=== PATIENT | female | born 1970 | race Caucasian/White ===

== ENCOUNTER 2024-01-15 02:09 | Emergency (ER) | payer OTHER, SELFPAY ==
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
[2024-01-15 02:13] VITALS: BP 121/78; PULSE 96; RESP 18; TEMP 35.7; O2SAT 96; BMI 26.9
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
[2024-01-15] MEDS: Ibuprofen 600 MG TABLET PO (03:36)
[2024-01-15 03:50] VITALS: BP 129/68; PULSE 89; RESP 16; TEMP 36.6; O2SAT 98
== END 2024-01-15 03:51 | disposition home or self-care (01) ==
PROVIDERS: Emergency Provider Internal Medicine; PCP Internal Medicine
DX: M25.521 Pain in right elbow (principal); S90.511A Abrasion, right ankle, initial encounter; Y04.2XXA Assault by strike against or bumped into by another person, initial encounter; Y93.89 Activity, other specified; Y92.511 Restaurant or cafe as the place of occurrence of the external cause; Y99.9 Unspecified external cause status
CPT/HCPCS: 73070; 99283; 99284

== ENCOUNTER 2024-03-02 12:35 | Outpatient (AMB) | payer OTHER, SELFPAY ==
[2024-03-02 12:53] VITALS: BP 118/66; PULSE 75; TEMP 36.7; O2SAT 98; BMI 26.8
--- NOTE | 2024-03-02 12:53 | MHC.OFFWIV ---
Intake Vital Signs 03/02/24 12:53 Height 5 ft 4 in Weight 156 lb BMI 26.8 BP 118/66 Blood Pressure Location Lt brachial Position Sitting Pulse 75 Pulse Source Pulse Oximeter Temp 98.1 F Temp Source Oral Pulse Oximetry (%) 98 Oxygen Delivery Method Room Air Intake Visit Reasons: EP-lt rib pain Intake Note: pt c/o LT rib pain. Started Wednesday. Slipped and fell while cleaning bathtub Patient Tobacco Use Status: Current everyday Tobacco user Allergies amoxicillin [AMOXICILLIN] Allergy (Unknown, Verified 03/02/24 12:58) RASH clavulanic acid [From AUGMENTIN] Allergy (Unknown, Verified 03/02/24 12:58) RASH Do you need a note to return to daycare/school/sports/work: No HPI HPI Comments History of Present Illness Details Patient is a 54-year-old female complaining of left-sided rib pain and pain with deep inspiration. She states she was cleaning the bathtub 3 days ago and her hand slipped and she caught the left underside of her ribs onto the edge of the bathtub. She states she has not been able to sleep because the pain is so bad and she is concerned there might be a fracture. She denies any actual shortness of breath but states it does hurt when she takes a deep breath. She has been taking ibuprofen without much relief in pain. [facility] Social History Patient Tobacco Use Status: Current everyday Tobacco user Review of Systems Const All systems reviewed & are unremarkable except as noted in HPI and below Physical Exam Vital Signs: Last Vital Signs Temp 98.1 F 03/02/24 12:53 Pulse 75 03/02/24 12:53 BP 118/66 03/02/24 12:53 Pulse Ox 98 03/02/24 12:53 Oxygen Delivery Method Room Air 03/02/24 12:53 BMI result Body Mass Index 26.8 Const General: cooperative, healthy appearing, comfortable and no acute distress Orientation/consciousness: patient oriented x3 Limitations: no limitations HEENT Head: Yes normal to inspection Chest Other: No ecchymosis Chest palpation & inspection: localized rib tenderness with anteroposterior compression left anterior-axillary line involving the 6th rib, involving the 7th rib and involving the 8th rib Resp Effort & Inspection: normal respiratory effort and able to speak in complete sentences Neuro General: patient oriented x3 Assessment & Plan Assessment & Plan (1) Rib tenderness: Code(s): R07.81 - Pleurodynia Plan: We will get chest x-ray with rib x-ray to ensure no fracture or atelectasis. Recommended using Salonpas patches or simliar, ice/heat as well as a leave or 600 mg of ibuprofen every 6 hours. Also recommended she use an incentive spirometer several times daily; gave her an incentive spirometer. Plan See above Orders: Orders XR ribs LT min 3V w CXR1V Today R07.81 - Pleurodynia Coding Level of Care Code New Pt Level 4 (11146) Diagnoses Rib tenderness R07.81
== END 2024-03-02 13:13 | disposition home or self-care (01) ==
PROVIDERS: PCP Internal Medicine; Visit Provider Physician Assistant
DX: R07.81 Pleurodynia (principal)
CPT/HCPCS: 99204

== ENCOUNTER 2024-03-02 13:07 | Outpatient (REF) | payer OTHER, SELFPAY ==
--- NOTE | ~2024-03-02 | XR_ITS ---
EXAMINATION: XR RIBS, LEFT CLINICAL INFORMATION: Pleurodynia. COMPARISON: None available. TECHNIQUE: 3 views of the left ribs were obtained. FINDINGS: Lungs are clear. No consolidation, pneumothorax, or pleural effusion. The cardiomediastinal silhouette and pulmonary vasculature are normal. Osseous structures are unremarkable. Ribs are intact. No fractures are identified. XR/XR ribs LT min 3V w CXR1V IMPRESSION: 1. No acute cardiopulmonary findings. 2. No displaced rib fractures. Electronically signed by: Marva Malave MD 03/02/2024 02:06 PM EDT
== END 2024-03-02 13:08 | disposition home or self-care (01) ==
LOC: HO.HMGCX 13:07
PROVIDERS: Visit Provider Physician Assistant
DX: R07.81 Pleurodynia (principal)
CPT/HCPCS: 71101

== ENCOUNTER 2025-03-09 10:52 | Outpatient (REF) | payer OTHER, SELFPAY ==
--- NOTE | ~2025-03-09 | XR_ITS ---
EXAMINATION: XR HAND, LEFT CLINICAL INFORMATION: S69.90XA - Unspecified injury of unspecified wrist, hand and finger(s), ... COMPARISON: None available. TECHNIQUE: PA, lateral, and oblique views of the left hand. FINDINGS: There is transverse lucency across the proximal metaphysis of the fifth proximal phalanx. No other abnormalities are seen. XR/XR hand LT min 3V IMPRESSION: Acute fracture of the proximal metaphysis, fifth proximal phalanx. Electronically signed by: Sal Hawk MD 03/09/2025 11:59 AM EDT
--- OUTSIDE RECORDS SUMMARY | 2025-03-09 14:10 | XMS_ITS ---
Author Name [facility] Organization Unknown Care Team Organization Name Specialty Phone Email Start Date End Da te [facility] Viky Camacho Primary Care 11/02/2022 024 [facility] Keeley Rodriguez Primary Care 09/02/2022
--- OUTSIDE RECORDS SUMMARY | 2025-03-09 14:10 | XMS_ITS | Clinical Summary ---
Author Organization [facility] [address] [place] [address] Address [address] [place] [address] Phone Care Team Providers Care [employer] Wire[employer] Name Role Phone Viky Camacho MD Primary Care Provider [phone] Allergies Active Allergy Reactions Criticality Noted Date Comments Amoxicillin Hives 10/27/2018 Medications diclofenac (VOLTAREN) 1 % topical gel Apply 4 g topically 2 (two) times a day if needed (Hi pain). 12/03/19 24 Active blood-glucose meter kit Use to test once daily 08/12/19 24 Active blood sugar diagnostic (FreeStyle Lite Strips) test strip Use to test once daily 08/12/19 24 Active FREESTYLE LANCETS MISC Use to test once daily 08/12/19 24 Active levothyroxine (SYNTHROID, LEVOTHROID) 100 mcg tablet Take 1 tablet (100 mcg total) by mouth 1 (one) time each day before breakfast. 90 each 1 10/19/19 25 Active Trulicity 0.75 mg/0.5 mL pen injector injectionIndications:Ty pe 2 diabetes mellitus with hypercholesterolemia (CMS/HCC V24, CMS/HCC V28) INJECT 0.5 ML (0.75 MG TOTAL) UNDER THE SKIN ONE TIME PER WEEK 2 mL 2 01/04/20 25 Active citalopram (CeleXA) 10 mg tablet Take 1 tablet (10 mg total) by mouth 1 (one) time each day. 90 each 01/19/20 25 Active empagliflozin (Jardiance) 10 mg tablet Take 1 tablet (10 mg total) by mouth 1 (one) time each day. 90 tablet 1 02/23/20 Active empagliflozin (Jardiance) 10 mg tablet Take 1 tablet (10 mg total) by mouth 1 (one) time each day. 90 tablet 01/19/20 25 2024 Amy mcdowell(Reo rder) Active Problems Problem Noted Date Diagnosed Date Fatty liver 04/29/2018 Hypertriglyceridemia 04/26/2018 Transaminitis 04/26/2018 Type 2 diabetes mellitus wit h hypercholesterolemia ([facility] V24, [facility] V28) 04/21/2018 Acquired hypothyroidism 04/18/2018 Obesity (BMI 30-39.9) 04/18/2018 Encounters Date Type Department Care Team Description 02/09/2025 3:30 PM EDT Office Visit Adult [address] [phone] Viky Camacho MD Type 2 diabetes mellitus with hypercholesterolemia ([facility] V24, [facility] V28) (Primary Dx); Acquired hypothyroidism; Depression, unspecified depression type; Vitamin D deficiency 01/18/2025 1:00 PM EDT Office Visit Orthopedics [address] [phone] Shiv Andrews PA Derangement of left knee (Primary Dx) 01/17/2025 1:00 PM EDT Treatment Outpatient Rehabilitation [address] [phone] Danyell Jaramillo, LEAD [employer] ENGINEER Acute pain of left knee (Primary Dx); Bilateral low back pain without sciatica, unspecified chronicity 01/12/2025 11:30 AM EDT Treatment Outpatient Rehabilitation [address] [phone] Agustin Santillan, LEAD [employer]LECT[employer] ENGINEER Acute pain of left knee (Primary Dx) 01/05/2025 11:30 AM EDT Treatment Outpatient Rehabilitation [address] [phone] Agustin Santillan, LEAD [employer]LECT[employer] CONTR[employer]S ENGINEER Acute pain of left knee (Primary Dx) 01/05/2025 Telephone Adult Medicine [facility] - [address] [phone] Viky Camacho MD 12/21/2024 11:30 AM EDT Treatment Outpatient Rehabilitation [address] [phone] Wilmer Butt, PT Acute pain of left knee (Primary Dx) 12/15/2024 11:30 AM EDT Treatment Outpatient Rehabilitation - [address] [phone] Agustin Santillan, LEAD [employer]LECT[employer] ENGINEER Acute pain of left knee (Primary Dx) 12/07/2024 1:15 PM EDT Office Visit Orthopedics - [address] [phone] Shiv Andrews, PA Acute pain of left knee (Primary Dx) 12/07/2024 11:30 AM EDT Treatment Outpatient Rehabilitation - [address] [phone] Wilmer Butt, PT Acute pain of left knee (Primary Dx) from Last 3 Months Immunizations Name Administration Dates Next Due Influenza Quadravalent, MDCK , 0.5ml, preservative free (Flucelvax) 6mo and older 03/31/2023,05/15/2022,04/18/2018 Influenza trivalent, 0.5mL, preservative free (Fluarix; FluLaval; Fluzone) ages 6mo and older (Afluria) 3 years and older 03/16/2024,06/16/2021,04/13/2019,2016 Tdap Tetanus diptheria acell ular pertussis (Boostrix; Adacel) 7yo and older 10/10/2024 Surgical History Surgery Date Site/Laterality Comments OTHER SURGICAL HISTORY 2013 PROCEDURE: DISKECTOMY LUMBAR SINGLE SP ANKLE SURGERY 2016 Right PROCEDURE: HISTORICAL ANKLE SURGERY; COMMENT: after fracture, with hardware placement Medical History Medical History Date Comments Acquired hypothyroidism 04/18/2018 DX:Acqui red hypothyroidism Tobacco use 04/18/2018 DX:Tobacco use Obesity (BMI 30-39.9) 04/18/2018 DX:Obesity (BMI 30-39.9) Transaminitis 04/26/2018 DX:Transaminitis ; COMMENT: NAFLD Alcohol consuption of more t vernon two drinks per day 10/27/2018 DX:Alcohol consuption of mor e than two drinks per day Family History Medical History Relation Name Comments Diabetes Brother htn Heart attack Father Lung cancer Mother Diabetes Paternal Grandmother htn Relation Name Status Comments Brother Father Maternal Grandfather Maternal Grandmother Mother Paternal Grandfather Paternal Grandmother Social History Tobacco Use Types Packs/Day Years Used Date Smoking Tobacco: Every Day Cigarettes 0.5 31.9 Started: 04/18/1993 Smokeless Tobacco: Never Tobacco Cessation:Ready to Q uit: Not Asked; Counseling Given: Not Answered Alcohol Use Standard Drinks/Week Comments Yes 0 (1 standard drink = 0.6 oz pur e alcohol) social Housing Instability Answer Date Recorde d Are you worried that in the next 2 months you may not have stable housing? No 10/10/2024 Food Access & Nutrition Answer Date Rec orded Do you have access to a vari ety of food including fruits and vegetables? Yes 10/10/2024 Access to Healthcare Answer Date Record ed Within the last 3 months, ho w many times did you visit the emergency department for your medical care? 0 10/10/2024 Health Literacy Answer Date Recorded How often do you need to hav e someone help you when you read instructions, pamphlets, or other written material from your doctor or pharmacy? Patient declined 10/10/2024 Caregiver: How often do you need to have someone help you when you read instructions, pamphlets, or other written material from your doctor or pharmacy? Not on file 025 Financial Risk Answer Date Recorded How hard is it for you to pa y for the very basics like food, housing, medical care, and air conditioning / heating? Very hard 10/10/2024 Transportation Answer Date Recorded Has the lack of transportati on kept you from meetings, work, or from getting things needed for daily living? No Has the lack of transportati on kept you from medical appointments or from getting medications? No 10/10/2024 Social Isolation Answer Date Recorded How often do you feel lonely or isolated from those around you? Sometimes 10/10/2024 Food Risk Answer Date Recorded Within the past 12 months we worried whether our food would run out before we got money to buy more. Not on file 025 Within the past 12 months th e food we bought just didn't last and we didn't have money to get more. Sometimes true 10/10/2024 Education Answer Date Recorded Do you think completing more education or training, like finishing a GED, going to college, or learning a trade, would be helpful for you? No 10/10/2024 Employment and Income Answer Date Recor ded During the last four weeks, have you been actively looking for work? No 10/10/2024 Living Situation Answer Date Recorded What is your living situation? 0 10/10/2024 Comments No Sex and Gender Information Value Date Recorded Sex Assigned at Not on file Legal Sex Female 3:23 PM EST Gender Identity Not on file Sexual Orientation Not on file Obstetrics History Last Filed Vital Signs Vital Sign Reading Time Taken Comments Blood Pressure 106/72 02/09/2025 3:50 PM EDT Pulse 78 02/09/2025 3:50 PM EDT Temperature 36.4 C (97.5 F) 02/09/2025 3:50 PM EDT Respiratory Rate 14 02/09/2025 3:50 PM EDT Oxygen Saturation 98% 02/09/2025 3:50 PM EDT Inhaled Oxygen Concentration - - Weight 70.8 kg (156 lb) 02/09/2025 3:50 PM EDT Height 160 cm (5' 3 ) 02/09/2025 3:50 PM EDT Body Mass Index 27.63 02/09/2025 3:50 PM EDT Plan of Treatment Upcoming Encounters Date Type Department Care Team (Late st Contact Info) Description 03/19/2025 10:00 AM EDT Consult Orthopedic Surgery - [place] [address] [place] [address] Juan Zuniga MD [address] [place] [phone] 10/11/2025 3:00 PM EDT Office Visit Adult [address] [phone] Viky Camacho MD [address] [place] [phone] Health Maintenance Due Date Last Done Comments Diabetes: Annual Retina Eye Exam 02/09/1978 Hepatitis B Vaccines (1 of 3 - 19+ 3-dose series) 02/09/1987 Pneumococcal Vaccine: 50+ Years (1 of 2 - PCV) 02/09/1987 Cervical Cancer Screening: Pap Smear 02/09/1989 Zoster Vaccines (1 of 2) 02/09/2018 Breast Cancer Screening 04/20/2020 04/20/2018 Colorectal Cancer Screening: Colonoscopy 06/06/2022 HIV Screening 06/06/2022 Diabetes: Annual Foot Exam 12/02/2024 12/03/2023 Influenza Vaccine (#1) 2025 , 03/31/2023, 05/15/2022, Additional history exists Diabetes: Blood Sugar Control Test (HGBA1C) 04/13/2025 10/12/2024, 03/27/2024, 03/27/2024, Additional history exists Social Influencers of Health Screening 10/10/2025 10/10/2024 Diabetes: Annual Urine Albumin-Creatinine Ratio (uACR) 10/12/2025 10/12/2024, 03/27/2024 Diabetes: Annual GFR (Glomerular Filtration Rate) 10/12/2025 10/12/2024, 03/27/2024, 03/27/2024, Additional history exists Cholesterol Screening (Lipid Panel) 10/12/2029 10/12/2024, 03/27/2024, 03/27/2024 DTaP,Tdap,and Td Vaccines (2 - Td or Tdap) 10/10/2034 10/10/2024 Hepatitis C Screening Completed 10/27/2018 COVID-19 Vaccine Discontinued 06/16/2021, , 09/27/2020 Depression Screening Completed 10/10/2024 HIB Vaccines Aged Out No longer eligi ble based on patient's age to complete this topic HPV Vaccines Aged Out No longer eligi ble based on patient's age to complete this topic Hepatitis A Vaccines Aged Out No long er eligible based on patient's age to complete this topic IPV Vaccines Aged Out No longer eligi ble based on patient's age to complete this topic MMR Vaccines Aged Out No longer eligi ble based on patient's age to complete this topic Meningococcal ACWY Vaccine Aged Out N o longer eligible based on patient's age to complete this topic Meningococcal B Vaccine Aged Out No l onger eligible based on patient's age to complete this topic RSV Immunization Patients Under 20 months Aged Out No longer eligible based on patient's age to complete this topic Varicella Vaccines Aged Out No longer eligible based on patient's age to complete this topic Goals Goal Patient Goal Type Associated Problems Recent Progress Patient-Stated? Author STG's 6 visits General Yes Wilmer Butt, PT Note: Pt will report walking household distances w/ SC and no increase in L knee pain. (Met) Pt will demonstrate L knee flexion to 140 degree or better. (Progress made) Pt will demonstrate L VMO strength of 3+/5 or better to improve tolerance to WB activities. Pt will report a 2-3 point decrease (on VAS) in L knee pain when walking or transferring in/out tub. (Progress made) Pt is Independent and compliant with initial HEP. LTG's 12 visits General Yes Wilmer Butt, PT Note: Pt will report walking outside distances (groceries/med appts) w/ SC and no increase in L knee pain. Pt will demonstrate L knee flexion to 145 degree or better. Pt will demonstrate L VMO strength of 4/5 or better to improve tolerance to WB activities. Pt will report a 4 point decrease (on VAS) in L knee pain when walking or transferring in/out tub. Pt will be Independent and compliant with final HEP. Procedures Procedure Name Priority Date/Time Associated Diagnosis Comments MICROALBUMIN CREATININE URINE RATIO Routine 10/12/2024 8:20 AM EDT Type 2 diabetes mellitus with hypercholesterolemia ([facility] V24, [facility] V28) COMPREHENSIVE METABOLIC PANEL Routine 10/12/2024 8:20 AM EDT Type 2 diabetes mellitus with hypercholesterolemia ([facility] V24, [facility] V28) HEMOGLOBIN A1C Routine 10/12/2024 8:20 AM EDT Type 2 diabetes mellitus with hypercholesterolemia (CMS/HCC V24, CMS/HCC V28) LIPID PANEL WITH REFLEX TO DIRECT LDL Routine 10/12/2024 8:20 AM EDT Type 2 diabetes mellitus with hypercholesterolemia (CMS/HCC V24, CMS/HCC V28) DIABETES FOOT EXAM Routine 12/03/2023 HEPATITIS C SCREENING Routine 10/27/2018 SCR MAMMO BI INCL CAD Routine 04/20/2018 12:59 PM EDT Encounter for screening mammogram for malignant neoplasm of breast from Last 3 Months or Most Recently Relevant to Health Maintenance Results * (ABNORMAL) Lipid panel with reflex to direct LDL (10/12/2024 8:20 AM EDT) Cholesterol 174 0 - 200 mg/dL LAB CHEMISTRY METHOD 10/12/2024 10:57 AM [facility] Triglycerides 227(H) 0 - 150 mg/dL LAB CHEMISTRY METHOD 10/12/2024 10:57 AM [facility] HDL 41 >=40 mg/dL LAB CHEMISTRY METHOD 10/12/2024 10:57 AM [facility] LDL Calculated 88 0 - 100 mg/dL LAB CHEMISTRY METHOD 10/12/2024 10:57 AM [facility] VLDL Cholesterol Maxim 45.4 mg/dL LAB CHEMISTRY METHOD 10/12/2024 10:57 AM [facility] Non HDL Chol. (LDL+VLDL) 133 <145 mg/dL LAB CHEMISTRY METHOD 10/12/2024 10:57 AM [facility] Chol/HDL Ratio 4.2 0.0 - 4.4 LAB CHEMISTRY METHOD 10/12/2024 10:57 AM [facility] Blood Venous blood specimen / Unknown Venipuncture / Unknown 10/12/2024 8:20 AM EDT 10/12/2024 8:20 AM EDT us Viky Camacho MD LAB BLOOD ORDERABLES Final Resul t [facility] [address] [place] [address], [place] [phone] * Microalbumin creatinine urine ratio (10/12/2024 8:20 AM EDT) Creatinine, Urine 75.0 mg/dL LAB CHEMISTRY METHOD 10/12/2024 11:32 AM EDT [facility] Microalb, Ur 16.9 0.0 - 29.0 mg/L LAB CHEMISTRY METHOD 10/12/2024 11:32 AM EDT [facility] Microalb/Creat Ratio 23 <30 mg/g creat LAB CHEMISTRY METHOD 10/12/2024 11:32 AM EDT [facility] Urine Urine specimen obtained by clean catch procedure / Unknown Non-blood Collection / Unknown 10/12/2024 8:20 AM EDT 10/12/2024 8:20 AM EDT us Viky Camacho MD LAB URINE ORDERABLES Final Resul t Performing Organization Address City/[facility] de Phone Number [facility] [address] [place] [address], [place] [phone] * (ABNORMAL) Hemoglobin A1c (10/12/2024 8:20 AM EDT) Hemoglobin A1C 7.5(H) <6.5 % LAB CHEMISTRY METHOD 10/12/2024 12:34 PM EDT [facility] Mean Bld Glu Estim. 169 mg/dL LAB CHEMISTRY METHOD 10/12/2024 12:34 PM EDT [facility] Blood Venous blood specimen / Unknown Venipuncture / Unknown 10/12/2024 8:20 AM EDT 10/12/2024 8:20 AM EDT us Viky Camacho MD LAB BLOOD ORDERABLES Final Resul t [facility] [address] [place] [address], [place] [phone] * (ABNORMAL) Comprehensive metabolic panel (10/12/2024 8:20 AM EDT) Sodium 135 133 - 145 mmol/L LAB CHEMISTRY METHOD 10/12/2024 10:57 AM [facility] Potassium 4.1 3.5 - 5.5 mmol/L LAB CHEMISTRY METHOD 10/12/2024 10:57 AM [facility] Chloride 104 96 - 110 mmol/L LAB CHEMISTRY METHOD 10/12/2024 10:57 AM [facility] CO2 22 21 - 32 mmol/L LAB CHEMISTRY METHOD 10/12/2024 10:57 AM [facility] Anion Gap 9 3 - 11 LAB CHEMISTRY METHOD 10/12/2024 10:57 AM [facility] Glucose 177(H) 70 - 100 mg/dL LAB CHEMISTRY METHOD 10/12/2024 10:57 AM [facility] BUN 14 5 - 25 mg/dL LAB CHEMISTRY METHOD 10/12/2024 10:57 AM [facility] Creatinine 0.79 0.50 - 1.10 mg/dL LAB CHEMISTRY METHOD 10/12/2024 10:57 AM [facility] eGFR 88 >=60 mL/min/1. 73m2 LAB CHEMISTRY METHOD 10/12/2024 10:57 AM [facility] Comment:Calculation based on the Chronic Kidney Disease Epidemiology Collaboration (CKD-EPI) equation refit without adjustment for race. BUN/Creatinine Ratio 17.7 LAB CHEMISTRY METHOD 10/12/2024 10:57 AM [facility] Calcium 9.3 8.5 - 10.5 mg/dL LAB CHEMISTRY METHOD 10/12/2024 10:57 AM EDT [facility] AST (SGOT) 21 10 - 42 unit/L LAB CHEMISTRY METHOD 10/12/2024 10:57 AM [facility] ALT (SGPT) 42 10 - 60 unit/L LAB CHEMISTRY METHOD 10/12/2024 10:57 AM EDT [facility] Alkaline Phosphatase 80 42 - 121 unit/L LAB CHEMISTRY METHOD 10/12/2024 10:57 AM [facility] Total Protein 7.7 6.0 - 8.0 g/dL LAB CHEMISTRY METHOD 10/12/2024 10:57 AM [facility] Albumin 3.7 3.2 - 5.0 g/dL LAB CHEMISTRY METHOD 10/12/2024 10:57 AM [facility] Total Bilirubin 0.4 0.0 - 1.4 mg/dL LAB CHEMISTRY METHOD 10/12/2024 10:57 AM [facility] Blood Venous blood specimen / Unknown Venipuncture / Unknown 10/12/2024 8:20 AM EDT 10/12/2024 8:20 AM EDT Viky Camacho MD LAB BLOOD ORDERABLES Final Resul t [facility] [address] [place] [address], * Diabetes Foot Exam (12/03/2023) Diabetes: Annual Foot Exam Abstracted Historical Provider HEALTH MAINTENANCE Final Result * Hepatitis C Screening (10/27/2018) Hepatitis C Screening Abstracted Historical Provider HEALTH MAINTENANCE Final Result * SCR MAMMO BI INCL CAD (04/20/2018 12:59 PM EDT) Anatomical Region Laterality Modality Radiographic Kateryna ging 04/18/2018 9:31 AM EDT Narrative 04/20/2018 4:29 PM EDT This is a summary report. The complete report is available in the patient's medical record. If you cannot access the medical record, please contact the sending organization for a detailed fax or copy. Baseline screening, full field digital mammography, reviewed with CAD. The breasts are composed of fatty and fibroglandular tissue. No suspicious mass, architectural distortion or suspicious calcifications are identified. IMPRESSION: : No mammographic evidence of malignancy. BIRADS 1-Negative; N. 5 year breast cancer risk assessment 1.1 % Lifetime breast cancer risk assessment 9.9 % Breast cancer risk category Low (<15%) Procedure Note Lizzy Cedeno MD - 06/16/2022 This is a summary report. The complete report is available in thepatient's medical record. If you cannot access the medical record, pleasecontact the sending organization for a detailed fax or copy. Baseline screening, full field digital mammography, reviewed with CAD.The breasts are composed of fatty and fibroglandular tissue. Nosuspicious mass, architectural distortion or suspicious calcifications areidentified. IMPRESSION: : No mammographic evidence of malignancy. BIRADS 1-Negative; N. 5 year breast cancer risk assessment 1.1 % Lifetime breast cancer risk assessment 9.9 % Breast cancer risk category Low (<15%) Melania NAVA IMG XR PROCEDURES Final Resul t from Last 3 Months or Most Recently Relevant to Health Maintenance Insurance [facility] Care Teams [employer] Relationship Specialty Start Date End Date Viky Camacho MD [address] [place] [phone] PCP - General Internal Medicine 06/09/24
== END 2025-03-09 10:53 | disposition home or self-care (01) ==
LOC: HO.HMGCX 10:52
PROVIDERS: PCP Internal Medicine; Visit Provider Internal Medicine
DX: S62.647A Nondisplaced fracture of proximal phalanx of left little finger, initial encounter for closed fracture (principal); S69.92XA Unspecified injury of left wrist, hand and finger(s), initial encounter; W23.0XXA Caught, crushed, jammed, or pinched between moving objects, initial encounter
CPT/HCPCS: 73130; 99212

== ENCOUNTER 2025-03-09 10:52 | Outpatient (AMB) | payer OTHER, SELFPAY ==
[2025-03-09 11:15] VITALS: BP 122/82; PULSE 83; RESP 16; TEMP 36.5; O2SAT 97
--- NOTE | 2025-03-09 11:15 | AM.OFFWIN_ITS ---
Intake Vital Signs 03/09/25 11:15 Weight 157 lb BP 122/82 Blood Pressure Location Rt brachial Position Sitting Respiration 16 Pulse 83 Pulse Source Pulse Oximeter Temp 97.7 F Temp Source Oral Pulse Oximetry (%) 97 Oxygen Delivery Method Room Air Intake Visit Reasons: ep possible broken pinky left hand Patient Tobacco Use Status: Current everyday Tobacco user [employer] Required: No Accompanied by: Self / Same As Patient Allergies amoxicillin (AMOXICILLIN) Allergy (Unknown, Verified 03/09/25 11:17) RASH clavulanic acid (From AUGMENTIN) Allergy (Unknown, Verified 03/09/25 11:17) RASH Medication List - Last Reconciled 03/09/25 by Sandra Cassidy MD blood sugar diagnostic (FreeStyle Lite Strips) As directed blood-glucose meter (FreeStyle [place] Lite kit) As directed diclofenac sodium 1% topical BID dulaglutide (Trulicity) mg subcut empagliflozin (Jardiance) 10 mg PO DAILY lancets (FreeStyle Lancets) As directed lancets As directed levothyroxine 100 mcg PO DAILY HPI ep possible broken pinky left hand HPI Details History of Present Illness The patient is a 55-year-old female presenting with left pinky finger trauma. Finger trauma: - Injury occurred on a Wednesday, a coup le of days prior to the visit. - The mechanism of injury was jamming th e left pinky finger against a door frame. - Initial immediate care included applyi ng ice and using a self-purchased splint. - Symptoms include significant pain, vernon bility to bend the pinky, persistent swelling, and inability to tighten splint due to pain. - Sensation is intact, and the vascular color is pink indicating good blood flow. - Swelling has not improved despite ongo ing icing. - Patient reports right-handed dominance , impacting daily functions less severely. - Current home management includes tapin g the pinky finger to the adjacent finger at night to minimize movement. Medications: - Ibuprofen 200 mg for pain. Social History: - The patient is right-handed, which les sens the functional impact of the left pinky injury. Problem List - Left pinky finger trauma. - left hand pain with swelling Patient Instructions - Keep the pinky elevated to reduce thro bbing and swelling. - Use a sling to help maintain elevation and prevent accidental movement. - Continue icing the area as needed. - Take Ibuprofen 600 mg up to twice a da y, but no more than every 8 hours, to manage pain, and be cautious of kidney and stomach health. - Follow up with the primary care for a hand specialist referral if a fracture is found on the x-ray. - Await a call from the physician regard ing the x-ray results. 15:00: X-ray report came in which kaylen ram colon Acute fracture of the proximal metaphysis, fifth proximal phalanx Proper splinting was applied to patient's hand before discharge, we will be faxing over x-ray report to her PCP So she can get a referral to hand specialist. Review of Systems - General: No fever no chills - Neurological: No headaches no dizziness - Ear nose throat: No sore throat no hearing difficulty no ear pain - Cardiovascular: No syncope, no chest pain, no palpitations - Gastrointestinal: No nausea vomiting or diarrhea Physical Exam General: No acute distress HEENT: No acute findings Neck: Supple Respiratory system: Able to talk in full sentences, no audible wheeze Gastrointestinal: No pain Extremities: Swelling noted in the fifth digit (pinky), unable to bend, sensation intact, color is pink indicating good circulation, dorsam of hand swellen and tender to palpation [employer] REPA[employer]ER: Alert awake oriented x3 motor intact Skin: Normal turgor PFSH Social History Patient Tobacco Use Status: Current everyday Tobacco user Physical Exam Vital Signs: Last Vital Signs Temp 97.7 F 03/09/25 11:15 Pulse 83 03/09/25 11:15 Resp 16 03/09/25 11:15 BP 122/82 03/09/25 11:15 Pulse Ox 97 03/09/25 11:15 Oxygen Delivery Method Room Air 03/09/25 11:15 Assessment & Plan Assessment & Plan (1) Fracture of finger of left hand: Code(s): S62.609A - Fracture of unspecified phalanx of unspecified finger, initial encounter for closed fracture Qualifiers: Encounter type: initial encounter Finger: little finger Fracture type: closed Phalanx: proximal Fracture alignment: nondisplaced Qualified Code(s): S62.647A - Nondisplaced fracture of proximal phalanx of left little finger, initial encounter for closed fracture (2) Hand injury: Code(s): S69.90XA - Unspecified injury of unspecified wrist, hand and finger(s), initial encounter Qualifiers: Encounter type: initial encounter Laterality: left Qualified Code(s): S69.92XA - Unspecified injury of left wrist, hand and finger(s), initial encounter (3) Swelling of finger, left: Code(s): M79.89 - Other specified soft tissue disorders (4) Hand pain, left: Code(s): M79.642 - Pain in left hand (5) Swelling of left hand: Code(s): M79.89 - Other specified soft tissue disorders Plan History of Present Illness The patient is a 55-year-old female presenting with left pinky finger trauma. Finger trauma: - Injury occurred on a Wednesday, a couple of days prior to the visit. - The mechanism of injury was jamming the left pinky finger against a door frame. - Initial immediate care included applying ice and using a self-purchased splint. - Symptoms include significant pain, inability to bend the pinky, persistent swelling, and inability to tighten splint due to pain. - Sensation is intact, and the vascular color is pink indicating good blood flow. - Swelling has not improved despite ongoing icing. - Patient reports right-handed dominance, impacting daily functions less severely. - Current home management includes taping the pinky finger to the adjacent finger at night to minimize movement. Medications: - Ibuprofen 200 mg for pain. Social History: - The patient is right-handed, which lessens the functional impact of the left pinky injury. Problem List - Left pinky finger trauma. - left hand pain with swelling Patient Instructions - Keep the pinky elevated to reduce throbbing and swelling. - Use a sling to help maintain elevation and prevent accidental movement. - Continue icing the area as needed. - Take Ibuprofen 600 mg up to twice a day, but no more than every 8 hours, to manage pain, and be cautious of kidney and stomach health. - Follow up with the primary care for a hand specialist referral if a fracture is found on the x-ray. - Await a call from the physician regarding the x-ray results. 15:00: X-ray report came in which showed colon Acute fracture of the proximal metaphysis, fifth proximal phalanx Proper splinting was applied to patient's hand before discharge, we will be faxing over x-ray report to her PCP So she can get a referral to hand specialist. Orders: Orders XR hand LT min 3V Today M79.89 - Other specified soft tissue disorders, S69.90XA - Unspecified injury of unspecified wrist, hand and finger(s), initial encounter Medications: New ibuprofen 600 mg PO Q8H PRN 30 tabs 0RF pain 15 days Coding Level of Care Code Est Pt Level 5 (38024) Diagnoses Closed nondisplaced fracture of proximal phalanx of left little finger, initial encounter S62.647A Encounter type: initial encounter Finger: little finger Fracture type: closed Phalanx: proximal Fracture alignment: nondisplaced Injury of left hand, initial encounter S69.92XA Encounter type: initial encounter Laterality: left Swelling of finger, left M79.89 Hand pain, left M79.642 Swelling of left hand M79.89 Time Spent (min) 40 Comment [id number] with the patient, x-ray report follow-up splinting
== END 2025-03-09 11:51 | disposition home or self-care (01) ==
PROVIDERS: PCP Internal Medicine; Visit Provider Internal Medicine
DX: S62.647A Nondisplaced fracture of proximal phalanx of left little finger, initial encounter for closed fracture (principal); S69.92XA Unspecified injury of left wrist, hand and finger(s), initial encounter; M79.89 Other specified soft tissue disorders; M79.642 Pain in left hand

== ENCOUNTER → 2025-03-09 11:45 | Outpatient (BNV) | payer OTHER, SELFPAY | PROVIDERS: PCP Internal Medicine; Visit Provider Radiology Diagnostic Radiology | DX: M79.642 Pain in left hand (principal) | CPT/HCPCS: 73130 ==

== ENCOUNTER 2025-04-28 10:58 | Outpatient (AMB) | payer OTHER, SELFPAY ==
--- OUTSIDE RECORDS SUMMARY | 2025-04-28 11:00 | XMS_ITS | Encounter Summary ---
Author Organization [place] [address] Care Team Providers Care Health And Wellness Coordinator Name Role Phone Viky Camacho MD Primary Care Provider [phone] Encounter Details Date Type Department Care Team ([facility] Contact Info) Description 04/23/2025 Results Follow-Up Adult Medicine [address] [place] [phone] Anne-Marie Márquez MA Social History Tobacco Use Types Packs/Day Years Used Date Smoking Tobacco: Every Day Cigarettes 0.5 32 Started: 04/18/1993 Smokeless Tobacco: Never Alcohol Use Standard Drinks/Week Comments Yes 0 [...] Date Recorded What is your living situation? Unrecognized valu e 10/10/2024 Comments No Sex and Gender Information Value Date Recorded Sex Assigned at Not on file Legal Sex Female 3:23 PM EST Gender Identity Not on file Sexual Orientation Not on file documented as of this encounter Plan of Treatment Upcoming Encounters Date Type Department Care Team (Late st Contact Info) Description 10/11/2025 3:00 PM EDT Office Visit Adult Medicine [address] [phone] Viky Camacho MD [address] [place] [address] documented as of this encounter Goals Goal Patient Goal Type Associated Problems [...] be Independent and compliant with final HEP. documented as of this encounter Visit Diagnoses Not on filedocumented in this encounter Additional Health Concerns Assessment Noted Time PHQ-9 Depression Total Score: 14 10/10/ 025 4:15 PM EDT documented as of this encounter Care Teams Health And Wellness Coordinator Relationship Specialty Start Date End Date Viky Camacho MD [address] [place] [phone] PCP - General Internal Medicine 06/09/24 documented as of this encounter
--- OUTSIDE RECORDS SUMMARY | 2025-04-28 11:00 | XMS_ITS | Clinical Summary ---
Author Organization [facility] [address] [place] [address] [address] [place] [address] Phone Care Team Providers Care Tiller Man Name Role Phone Viky Camacho MD Primary Care Provider [phone] Allergies Active Allergy Reactions Criticality Noted Date Comments Amoxicillin Hives 10/27/2018 Medications diclofenac (VOLTAREN) 1 % topical gel Apply 4 g topically 2 (two) times a day if needed (Hi pain). 024 Active blood-glucose meter kit Use to test once daily 024 Active blood sugar diagnostic (FreeStyle Lite Strips) test strip Use to test once daily 024 Active FREESTYLE LANCETS MISC Use to test once daily 024 Active empagliflozin (Jardiance) 10 mg tablet Take 1 tablet (10 mg total) by mouth 1 (one) time each day. 90 tablet 1 025 Active ibuprofen (ADVIL,MOTRIN) 600 mg tablet 1 tablet (600 mg total) every 8 (eight) hours if needed. 025 Active levothyroxine (SYNTHROID, LEVOTHROID) 100 mcg tablet TAKE 1 TABLET BY MOUTH 1 TIME EACH DAY BEFORE BREAKFAST. 90 tablet 1 025 Active citalopram (CeleXA) 10 mg tablet Take 1 tablet (10 mg total) by mouth 1 (one) time each day. 90 each 025 Active dulaglutide (Trulicity) 0.75 mg/0.5 mL pen injector injectionIndications:T ype 2 diabetes mellitus with hypercholesterolemia ([facility] V24, [facility] V28) Inject 0.5 mL (0.75 mg total) under the skin 1 (one) time per week. 6 mL 025 Active levothyroxine (SYNTHROID, LEVOTHROID) 100 mcg tablet Take 1 tablet (100 mcg total) by mouth 1 (one) time each day before breakfast. 90 each 1 025 2024 Discontinued citalopram (CeleXA) 10 mg tablet Take 1 tablet (10 mg total) by mouth 1 (one) time each day. 90 each 025 2024 Discontinued( Reorder) Trulicity 0.75 mg/0.5 mL pen injector injectionIndications:T ype 2 diabetes mellitus with hypercholesterolemia ([facility] V24, [facility] V28) INJECT 0.5 ML (0.75 MG TOTAL) UNDER THE SKIN ONE TIME PER WEEK 6 mL 025 2024 Discontinued( Reorder) Active Problems Problem Noted Date Diagnosed Date Fatty liver 04/29/2018 Hypertriglyceridemia 04/26/2018 Transaminitis 04/26/2018 Type 2 diabetes mellitus wit h hypercholesterolemia [place] [place] [facility] V28) 04/21/2018 Acquired hypothyroidism 04/18/2018 Obesity (BMI 30-39.9) 04/18/2018 Encounters Date Type Department Care Team Description 04/23/2025 Results Follow-Up Adult Medicine [address] [phone] Anne-Marie Márquez MA 04/20/2025 Telephone Adult Medicine [address] [phone] Viky Camacho MD 04/18/2025 9:00 AM EDT Office Visit Orthopedic Surgery - [place] [address] [place] [phone] Juan Zuniga MD Derangement of left knee (Primary Dx); Patellofemoral arthrosis; Insufficiency fracture of femur, left, initial encounter ([facility] [place] [facility] [place]) 03/22/2025 1:30 PM EDT Consult Orthopedic Surgery [place] [address] [place] [address] Serena Castro PA Closed fracture of phalanx of digit of hand with routine healing, subsequent encounter 03/15/2025 9:00 AM EDT Office Visit [address] [phone] Viky Camacho MD Closed fracture of phalanx of digit of hand with routine healing, subsequent encounter (Primary Dx) 02/09/2025 3:30 PM EDT Office Visit [address] [phone] Viky Camacho MD Type 2 diabetes mellitus with hypercholesterolemia (CMS/HCC V24, CMS/HCC V28) (Primary Dx); Acquired hypothyroidism; Depression, unspecified depression type; Vitamin D deficiency from Last 3 Months Immunizations Immunization Administration Dates Next Due Influenza Quadravalent, MDCK , 0.5ml, preservative free (Flucelvax) 6mo and older 03/31/2023,05/15/2022,04/18/2018 Influenza trivalent, 0.5mL, preservative free (Fluarix; FluLaval; Fluzone) ages 6mo and older (Afluria) 3 years and older 03/16/2024,06/16/2021,04/13/2019,2016 Tdap Tetanus diptheria acell ular pertussis (Boostrix; Adacel) 7yo and older 10/10/2024 Surgical History Surgery Date Site/Laterality Comments OTHER SURGICAL HISTORY 2012 PROCEDURE: DISKECTOMY LUMBAR SINGLE SP ANKLE SURGERY [...] 0.5 32 Started: 04/18/1993 Smokeless Tobacco: Never Tobacco Cessation:Ready [...] Sign Reading Time Taken Comments Blood Pressure 122/80 03/15/2025 9:04 AM EDT Pulse 78 03/15/2025 9:04 AM EDT Temperature 36.4 C (97.5 F) 03/15/2025 9:04 AM EDT Respiratory Rate 14 03/15/2025 9:04 AM EDT Oxygen Saturation 98% 02/09/2025 3:50 PM EDT Inhaled Oxygen Concentration - - Weight 71.9 kg (158 lb 9.6 oz) 03/15/2025 9:04 A M EDT Height 160 cm (5' 3 ) 03/15/2025 9:04 AM EDT Body Mass Index 28.09 03/15/2025 9:04 AM EDT Plan of Treatment Upcoming Encounters Date Type Department Care Team (Late st Contact Info) Description 10/11/2025 3:00 PM EDT Office Visit Adult Medicine [address] [phone] Viky Camacho MD [address] [place] [address] Health Maintenance Due Date Last Done Comments Colorectal Cancer Screening: Colonoscopy 1968 Diabetes: Annual Retina Eye Exam 02/09/1978 Hepatitis B Vaccines (1 of 3 - 19+ 3-dose series) 02/09/1987 Pneumococcal Vaccine: 50+ Years (1 of 2 - PCV) 02/09/1987 Cervical Cancer Screening: Pap Smear 02/09/1989 RSV Immunization Adult Patients (1 - Risk 50-74 years 1-dose series) 02/09/2018 Zoster Vaccines (1 of 2) 02/09/2018 Breast Cancer Screening 04/20/2020 04/20/2018 HIV Screening 06/06/2022 Diabetes: Annual Foot Exam [...] Procedure Name Priority Date/Time Associated Diagnosis Comments XR KNEE 4+ VIEWS LEFT Routine 04/18/2025 9:04 AM EDT Derangement of left knee EXTERNAL XRAY REPORT 04/18/2025 XR FINGERS 2+ VIEWS LEFT Routine 03/22/2025 2:02 PM EDT Closed fracture of phalanx of digit of hand with routine healing, subsequent encounter EXTERNAL XRAY REPORT 03/09/2025 EXTERNAL XRAY REPORT 03/09/2025 EXTERNAL XRAY REPORT 03/09/2025 MICROALBUMIN CREATININE URINE RATIO Routine 10/12/2024 8:20 AM EDT Type 2 diabetes mellitus with hypercholesterolemia (CMS/HCC V24, CMS/HCC V28) COMPREHENSIVE METABOLIC PANEL Routine 10/12/2024 8:20 AM EDT Type 2 diabetes mellitus with hypercholesterolemia (CMS/HCC V24, CMS/HCC V28) HEMOGLOBIN A1C Routine 10/12/2024 8:20 AM EDT Type 2 diabetes mellitus with hypercholesterolemia ([facility] V24, [facility] V28) LIPID PANEL WITH REFLEX TO DIRECT LDL Routine 10/12/2024 8:20 AM EDT Type 2 diabetes mellitus with hypercholesterolemia ([facility] V24, CMS/[facility] V28) DIABETES FOOT EXAM Routine 12/03/2023 HEPATITIS C SCREENING Routine 10/27/2018 SCR MAMMO BI INCL CAD Routine 04/20/2018 12:59 PM EDT Encounter for screening mammogram for malignant neoplasm of breast from Last 3 Months or Most Recently Relevant to Health Maintenance Results * XR Knee 4+ Views Left (04/18/2025 9:04 AM EDT) Anatomical Region Laterality Modality Lower Extremities, Knee Left Computed Radiography Narrative 04/18/2025 9:07 AM EDT X-rays April 18, 2025. Bilateral knee PA weightbearing views. Lateral view of the left knee. [place] view left knee. No acute osseous abnormalities. Narrowing of the patellofemoral compartment. Overall good preservation of the medial lateral compartment. us Juan Zuniga MD IMG XR PROCEDURES Final Result * External Xray Report (04/18/2025) Only the most recent of4 resultswithin the time period is included. Anatomical Region Laterality Modality Radiographic Kateryna ging us Provider [facility] IMG XR PROCEDURES Final Result * XR Fingers 2+ Views Left (03/22/2025 2:02 PM EDT) Anatomical Region Laterality Modality Upper Extremities, Fingers Left Compu irene Radiography Narrative 03/22/2025 2:14 PM EDT Date of Visit: 03/22/2025 Reason for visit: Left small finger fracture Views: AP, lateral, oblique left small finger Comparison: None Findings: Left small finger base of proximal phalanx fracture, lucency is seen best on AP and oblique. There is no displacement, shortening, or rotation. Lateral alignment maintained. Impression: Left small finger base of proximal phalanx fracture nondisplaced us Serena NAVA IMG XR PROCEDURES Final Resul t * (ABNORMAL) Lipid panel with reflex to direct LDL (10/12/2024 8:20 AM EDT) Cholesterol 174 0 - 200 mg/dL LAB CHEMISTRY METHOD 10/12/2024 10:57 AM EDT [facility] Triglycerides 227(H) 0 - 150 mg/dL LAB CHEMISTRY METHOD 10/12/2024 10:57 AM EDT [facility] HDL 41 >=40 mg/dL LAB CHEMISTRY METHOD 10/12/2024 10:57 AM EDT [facility] LDL Calculated 88 0 - 100 mg/dL LAB CHEMISTRY METHOD 10/12/2024 10:57 AM EDT [facility] VLDL Cholesterol Maxim 45.4 mg/dL LAB CHEMISTRY METHOD 10/12/2024 10:57 AM T [facility] Non HDL Chol. (LDL+VLDL) 133 <145 mg/dL LAB CHEMISTRY METHOD 10/12/2024 10:57 AM T [facility] Chol/HDL Ratio 4.2 0.0 - 4.4 LAB CHEMISTRY METHOD 10/12/2024 10:57 AM T [facility] Blood Venous blood specimen / Unknown Venipuncture / Unknown 10/12/2024 8:20 AM EDT 10/12/2024 8:20 AM EDT us Viky Camacho MD LAB BLOOD ORDERABLES Final Resul t [facility] [address] [place] [address], [place] [phone] * Microalbumin creatinine urine ratio (10/12/2024 8:20 [...] ORDERABLES Final Resul t Performing Organization Address City/[facility]/ZIP Co de Phone Number [facility] [address] [place] [address], [place] [phone] * (ABNORMAL) Hemoglobin A1c (10/12/2024 8:20 AM EDT) [facility] Hemoglobin A1C 7.5(H) <6.5 % LAB CHEMISTRY METHOD 10/12/2024 12:34 PM EDT [facility] Mean Bld Glu Estim. 169 mg/dL LAB CHEMISTRY METHOD 10/12/2024 12:34 PM EDT [facility] Blood Venous blood specimen / Unknown Venipuncture / Unknown 10/12/2024 8:20 AM EDT 10/12/2024 8:20 AM EDT us Viky Camacho MD LAB BLOOD ORDERABLES Final Resul t Performing Organization Address City/[facility]/ZIP Co de Phone Number [facility] [address] [place] [address], [place] [phone] * (ABNORMAL) Comprehensive metabolic panel (10/12/2024 8:20 AM EDT) [facility] Signature Sodium 135 133 - 145 mmol/L LAB CHEMISTRY METHOD 10/12/2024 10:57 AM [facility] Potassium 4.1 3.5 - 5.5 mmol/L LAB CHEMISTRY METHOD 10/12/2024 10:57 AM [facility] Chloride 104 96 - 110 mmol/L LAB CHEMISTRY METHOD 10/12/2024 10:57 AM [facility] CO2 22 21 - 32 mmol/L LAB CHEMISTRY METHOD 10/12/2024 10:57 AM [facility] Anion Gap 9 3 - 11 LAB CHEMISTRY METHOD 10/12/2024 10:57 AM [facility] Glucose 177(H) 70 - 100 mg/dL LAB CHEMISTRY METHOD 10/12/2024 10:57 AM [facility] BUN 14 5 - 25 mg/dL LAB CHEMISTRY METHOD 10/12/2024 10:57 AM [facility] Creatinine 0.79 0.50 - 1.10 mg/dL LAB CHEMISTRY METHOD 10/12/2024 10:57 AM [facility] eGFR 88 >=60 mL/min/1. 73m2 LAB CHEMISTRY METHOD 10/12/2024 10:57 AM [facility] Comment:Calculation based on the Chronic Kidney Disease Epidemiology Collaboration (CKD-EPI) equation refit without adjustment for race. BUN/Creatinine Ratio 17.7 LAB CHEMISTRY METHOD 10/12/2024 10:57 AM [facility] Calcium 9.3 8.5 - 10.5 mg/dL LAB CHEMISTRY METHOD 10/12/2024 10:57 AM [facility] AST (SGOT) 21 10 - 42 unit/L LAB CHEMISTRY METHOD 10/12/2024 10:57 AM [facility] ALT (SGPT) 42 10 - 60 unit/L LAB CHEMISTRY METHOD 10/12/2024 10:57 AM EDT [facility] Alkaline Phosphatase 80 42 - 121 unit/L LAB CHEMISTRY METHOD 10/12/2024 10:57 AM EDT [facility] Total Protein 7.7 6.0 - 8.0 g/dL LAB CHEMISTRY METHOD 10/12/2024 10:57 AM EDT [facility] Albumin 3.7 3.2 - 5.0 g/dL LAB CHEMISTRY METHOD 10/12/2024 10:57 AM EDT [facility] Total Bilirubin 0.4 0.0 - 1.4 mg/dL LAB CHEMISTRY METHOD 10/12/2024 10:57 AM EDT [facility] Blood Venous blood specimen / Unknown Venipuncture / Unknown 10/12/2024 8:20 AM EDT 10/12/2024 8:20 AM EDT Viky Camacho MD LAB BLOOD ORDERABLES Final Resul t [facility] [address] [place] [address], * Diabetes Foot Exam (12/03/2023) [facility] Diabetes: Annual Foot Exam Abstracted Historical Provider HEALTH MAINTENANCE Final Result * Hepatitis C Screening (10/27/2018) [facility] Hepatitis C Screening Abstracted Historical Provider HEALTH [...] cancer risk category Low (<15%) Melania NAVA IMJose Martin XR PROCEDURES Final Resul t from Last 3 Months or Most Recently Relevant to Health Maintenance Insurance [facility] [employer] Care Teams Tiller Man Relationship Specialty Start Date End Date Viky Camacho MD [address] [place] [phone] PCP - General Internal Medicine 06/09/24
--- NOTE | 2025-04-28 12:07 | MHC.OFFWIV ---
Intake Vital Signs 04/28/25 12:08 Height 5 ft 4 in Weight 157 lb BMI 26.9 BP 100/64 Blood Pressure Location Lt brachial Position Sitting Respiration 16 Pulse 98 Pulse Source Pulse Oximeter Temp 98.3 F Temp Source Oral Pulse Oximetry (%) 97 Oxygen Delivery Method Room Air Intake Visit Reasons: EP Fell and hit right elbow Intake Note: Pt is here today took a fall 3days ago at home and landed on Rt elbow Patient Tobacco Use Status: Current everyday Tobacco user Allergies amoxicillin (AMOXICILLIN) Allergy (Unknown, Verified 04/28/25 12:08) RASH clavulanic acid (From AUGMENTIN) Allergy (Unknown, Verified 04/28/25 12:08) RASH PFSH Social History Patient Tobacco Use Status: Current everyday Tobacco user Review of Systems Const All systems reviewed & are unremarkable except as noted in HPI and below Physical Exam Vital Signs: Last Vital Signs Temp 98.3 F 04/28/25 12:08 Pulse 98 04/28/25 12:08 Resp 16 04/28/25 12:08 BP 100/64 04/28/25 12:08 Pulse Ox 97 04/28/25 12:08 Oxygen Delivery Method Room Air 04/28/25 12:08 BMI result Body Mass Index 26.9 Extrem Other: right elbow with fluctuance, warmth and erythema to the overlying skin, but joint has FROM and good strength, as does the distal aspect of the arm, which is neurovascularly intact. General: Yes capillary refill normal Results Reviewed Results Reviewed: Plain film XR of right elbow shows no acute fracture or dislocation. There is a small ossific fragment consistent to prior elbow x-ray, to the lateral epicondyle, as well as degenerative change. Enthesophyte is also still apparent from prior image. Visible soft tissue swelling Assessment & Plan Assessment & Plan (1) Septic bursitis of elbow: Code(s): M71.129 - Other infective bursitis, unspecified elbow Qualifiers: Laterality: right Qualified Code(s): M71.121 - Other infective bursitis, right elbow Plan Olecranon bursitis apparent after fall, which is now cellulitic. I will start her on Bactrim. She has 600 mg ibuprofen at home, which she will start 3 times a day. She also was instructed to elevate it above the level of her heart as much as possible. She can ice over the next day or 2. Limit movement and use of the arm as able. She was instructed to follow up on Wednesday to have it re-evaluated by PCP, or she can come back to the walk-in as needed. If symptoms persist or worsen, she should be considered as a STAT referral to Orthopedics. As she is not a patient here at [facility], I can not put through that referral for her today. She knows to go to the emergency department with worrisome symptom, which we discussed. Orders: Orders XR elbow RT min 3V Today M25.521 - Pain in right elbow Medications: New sulfamethoxazole-trimethoprim 800-160 mg (Bactrim DS) 2 tabs PO BID 40 tabs 0RF 10 days Coding Level of Care Code Est Pt Level 4 (71866) Diagnoses Septic olecranon bursitis of right elbow M71.121 Laterality: right
[2025-04-28 12:08] VITALS: BP 100/64; PULSE 98; RESP 16; TEMP 36.8; O2SAT 97; BMI 26.9
== END 2025-04-28 13:13 | disposition home or self-care (01) ==
PROVIDERS: PCP Internal Medicine; Visit Provider Physician Assistant Medical
DX: M71.121 Other infective bursitis, right elbow (principal)

== ENCOUNTER 2025-04-28 10:58 | Outpatient (REF) | payer OTHER, SELFPAY ==
--- NOTE | ~2025-04-28 | XR_ITS ---
CLINICAL HISTORY: M25.521 - Pain in right elbow Radiographs of the right elbow, 3 views Comparison: 01/15/2024 Findings: No fracture or dislocation. 4 mm well corticated ossific fragment adjacent to the lateral epicondyle, chronic. Mild degenerative change. Small enthesophyte at the insertion of the triceps tendon. No joint effusion. Soft tissue swelling. Impression: No acute osseous abnormality. Soft tissue swelling may indicate olecranon bursitis which could be secondary to trauma or infection. This document has been electronically signed by: Carey Whitaker MD on 04/28/2025 13:24:39
== END 2025-04-28 10:59 | disposition home or self-care (01) ==
LOC: HO.HMGCX 10:58
PROVIDERS: PCP Internal Medicine; Visit Provider Physician Assistant Medical
DX: M71.121 Other infective bursitis, right elbow (principal)
CPT/HCPCS: 73080; 99212

== ENCOUNTER → 2025-04-28 12:23 | Outpatient (BNV) | payer OTHER, SELFPAY | PROVIDERS: PCP Internal Medicine; Visit Provider Radiology Diagnostic Radiology | DX: M25.521 Pain in right elbow (principal) | CPT/HCPCS: 73080 ==